=== PATIENT | female | born 1985 | race African-American/Black ===

== ENCOUNTER 2016-07-05 10:19 | Emergency (ER) | payer MEDICAID ==
[~2016-07-05] VITALS: Ht 167.6 cm; Wt 105.0 kg
[~2016-07-05 10:19] MED LIST: FLON0.053; LEVO75TA3 PO
[2016-07-05 10:22] VITALS: BP 138/83; PULSE 95; RESP 15; TEMP 98.1; O2SAT 98
--- NOTE | 2016-07-05 10:35 | PD ---
HPI Chief Complaint: Injury Time Seen by Provider: 10:32 Travel History International Travel<30 days: No Contact w/Intl Traveler<30days: No Traveled to known affect area: No History of Present Illness HPI Patient comes in complaining of right foot pain began yesterday after slipping in the rain. Patient having aching pain over the lateral aspect of her right foot without radiation. Pain is worse with walking. Patient is been elevating it, using ice, and taking ibuprofen for the pain. Denies any numbness or tingling. Patient is uncertain as to whether or not she is . [facility] Past Medical History Asthma: Yes Anxiety: Yes Thyroid Disease: Yes (HYPO) ?: Unknown LMP: 05/2016 : 3 Para: 1 Social History Alcohol Use: No Tobacco Use: No Substance Use: No Allergies-Medications (Allergen,Severity, Reaction): Coded Allergies: Ativan (Verified Adverse Reaction, Severe, HIVES AND ITCHING, 07/05/16) Reported Meds & Prescriptions Reported Meds & Active Scripts Active Levothyroxine 75 mcg (Levothyroxine Sodium) 75 Mcg Tab 75 Mcg PO DAILY Flonase (Fluticasone Propionate) 0.05 % Naspr 2 Spr NA DAILY 2 SPRAYS EACH NOSTRIL Review of Systems Except as stated in HPI: all other systems reviewed are Neg Physical Exam Narrative GENERAL: Well-developed, overly nourished, in no acute distress, and non-ill appearing. SKIN: Warm and dry. HEAD: Atraumatic. Normocephalic. EYES: Pupils equal and round. EOMI. No scleral icterus. No injection or drainage. ENT: No nasal bleeding or discharge. Mucous membranes pink and moist. NECK: Trachea midline. Supple. No nuclear rigidity. CARDIOVASCULAR: Dorsal pulses 2+ intact and equal bilaterally. Capillary refill less than 2 seconds. No pedal edema. RESPIRATORY: No accessory muscle use. No respiratory distress. MUSCULOSKELETAL: No obvious deformities. No clubbing. No cyanosis. No edema. Full range of motion. Ankle: Neagative anterior draw and Peck test. Negative Mary's sign. No laxity noted with passive inversion and eversion of BL ankles. Negative squeeze test. Pulses equal BL distal to injury. Capillary refill less than 2 seconds distal to injury and equal BL. Sensation equal BL 1st web space. FROM of toes distal to injury and equal BL. NV intact distal to injury and equal BL. Dorsal pulses equal BL. Patient reports tenderness to palpation over the lateral aspect of right foot proximally. NEUROLOGICAL: Awake and alert. No obvious cranial nerve deficits. Motor grossly within normal limits. Normal speech. PSYCHIATRIC: Appropriate mood and affect; insight and judgment normal. Data Data Last Documented VS Vital Signs Date Time Temp Pulse Resp B/P Pulse Ox O2 Delivery O2 Flow Rate FiO2 07/05/16 10:22 98.1 95 15 138/83 98 Orders Foot, Complete ([id number]) (07/05/16 ) Ed Urine Pregnancytest Poc (07/05/16 12:11) Splint Or Brace Apply/Monitor (07/05/16 12:17) Shoe Cast (07/05/16 ) MDM Medical Decision Making Medical Screen Exam Complete: Yes Emergency Medical Condition: Yes Differential Diagnosis Fracture, sprain, contusion, other Narrative Course There is no clinical evidence for fracture. There is no clinical evidence to suspect bony injury by exam. Radiographic examination revealed no fracture seen at this time. No obvious ligamental injury or internal derangement is noted at this time. The distal extremity appears neurovascularly intact, without evidence of neurovascular injury nor compartment syndrome. Tendon exam also was intact. The effected limb was splinted. The patient was discharged with sprain and splint care instructions and given warnings for vascular compromise. The patient is to follow up with primary care or podiatry. The patient agrees with plan. Patient in no obvious distress upon re-evaluation. All pertinent Radiology result(s) discussed with patient. Any questions/concerns in reference to patient diagnosis/condition discussed and clarified prior to patient's discharge. Reinforced sheer importance of close follow up with patient's primary physician or primary care clinic. Instructed patient to return to ED immediately, if symptoms return/worsen. Pt showed understanding of above instructions. Further instructions and recommendations were detailed in discharge paperwork. Pt ambulated without difficulty out of ED at discharge. Diagnosis Primary Impression: Foot sprain Qualified Code: S93.601A - Foot sprain, right, initial encounter Additional Impression: Qualified Code: Z3A.49 - More than 42 weeks gestation of Patient Instructions: First Trimester (ED), Foot Sprain (ED), General Instructions, Splint Care (ED) Additional Instructions: Follow-up with your primary care physician, photo tech, and or OB next week for reevaluation. Take [id number] Tylenol as needed for pain as this is the only thing that is safe [id number] to take in . Follow instructions on the packaging. Start taking [id number] vitamins. Follow instructions on the packaging. Return to the emergency department if symptoms get worse. Disposition: 01 DISCHARGE HOME Condition: Stable Danielito Mendiola Jul 05, 2016 10:34
--- NOTE | 2016-07-05 12:11 | RADRPT ---
EXAM DATE/TIME: 07/05/2016 11:53 [place] COMPARISON: No previous studies available for comparison. INDICATIONS : Right foot pain due to fall. MEDICAL HISTORY : None. SURGICAL HISTORY : None. ENCOUNTER: Initial ACUITY: 1 day PAIN SCORE: 4/10 LOCATION: Right Foot. FINDINGS: Three view examination of the right foot demonstrates no soft tissue swelling, dislocation, or fractu re. The tarsal bones appear intact. The interphalangeal and metatarsophalangeal joints are intact. The calcaneus is intact. Bony mineralization is normal. CONCLUSION: Unremarkable examination of the right foot. Juni Elliott MD on July 05, 2016 at 12:07 Board Certified Radiologist. This report was verified electronically.
[2016-07-05] MEDS ORDERED: LEVO75TA3 PO (14:49)
== END 2016-07-05 14:05 | disposition home or self-care (01) ==
LOC: NEPB 10:19
DX: S93.601A Unspecified sprain of right foot, initial encounter (principal); E07.9 Disorder of thyroid, unspecified; Z87.09 Personal history of other diseases of the respiratory system; Z86.59 Personal history of other mental and behavioral disorders; Z3A.49 Greater than 42 weeks gestation of pregnancy; W01.0XXA Fall on same level from slipping, tripping and stumbling without subsequent striking against object, initial encounter
CPT/HCPCS: 73630; 84703; 99283; L3260

== ENCOUNTER 2017-03-25 08:02 | Emergency (ER) | payer MEDICAID ==
[~2017-03-25] VITALS: Ht 167.6 cm; Wt 120.0 kg
[~2017-03-25 08:02] MED LIST changes: -FLON0.053
[2017-03-25 08:05] VITALS: BP 142/88; PULSE 89; RESP 16; TEMP 98.6; O2SAT 98
--- NOTE | 2017-03-25 08:41 | PD ---
HPI Chief Complaint: Cold / Flu Symptoms Time Seen by Provider: 08:22 Travel History International Travel<30 days: No Contact w/Intl Traveler<30days: No Traveled to known affect area: No History of Present Illness HPI 32-year-old female as to the emergency department with body aches, dry cough, and sneezing since Saturday. States that these bodies aches started Saturday and worsened throughout the day and weekend. States she also has some shortness of breath Saturday and Saturday however this has resolved. Denies fevers but admits to sweats. States her children have had the "common cold" within the last 2 weeks and believes that she became sick from them. She has had a couple of episodes of nausea without vomiting that resolved on room. Patient denies rhinorrhea, fever, chills, chest pain, shortness of breath, vomiting, or diarrhea. Patient denies dysuria or other urinary problems. 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 PFSH Past Medical History Asthma: Yes Anxiety: Yes Thyroid Disease: Yes (HYPO) ?: Not LMP: 03/12/17 : 3 Para: 1 Past Surgical History Surgical History: No Previous Surgery Social History Alcohol Use: No Tobacco Use: No Substance Use: No Allergies-Medications (Allergen,Severity, Reaction): Coded Allergies: lorazepam (Verified Adverse Reaction, Severe, HIVES AND ITCHING, 03/25/17) Reported Meds & Prescriptions Reported Meds & Active Scripts Active Tamiflu (Oseltamivir Phosphate) 75 Mg Cap 75 Mg PO BID 5 Days Reported Levothyroxine (Levothyroxine Sodium) 75 Mcg Tab 75 Mcg PO DAILY Review of Systems Except as stated in HPI: all other systems reviewed are Neg Physical Exam Narrative GENERAL: Well developed well nourished in mild distress SKIN: Focused skin assessment warm/dry. Patient demonstrates mild tenderness to palpation of the skin rashes or lesions. HEAD: Atraumatic. Normocephalic. EYES: Pupils equal and round. No scleral icterus. No injection or drainage. ENT: No nasal bleeding or discharge. Mucous membranes pink and moist. THROAT: Mild pharyngeal injection with tonsillar hypertrophy, no exudate NECK: Trachea midline. No JVD. CARDIOVASCULAR: Regular rate and rhythm. No murmur appreciated. RESPIRATORY: No accessory muscle use. Clear to auscultation. Breath sounds equal bilaterally. MUSCULOSKELETAL: No obvious deformities. No clubbing. No cyanosis. No edema. Right CVA tenderness versus bodyaches NEUROLOGICAL: Awake and alert. No obvious cranial nerve deficits. Motor grossly within normal limits. Normal speech. PSYCHIATRIC: Appropriate mood and affect; insight and judgment normal. Data Data Last Documented VS Vital Signs Date Time Temp Pulse Resp B/P (MAP) Pulse Ox O2 Delivery O2 Flow Rate FiO2 03/25/17 09:50 03/25/17 08:05 98.6 89 16 98 Orders Orders Pediatric Rapid Resp Ag Panel (03/25/17 08:35) Ketorolac Inj (Toradol Inj) (03/25/17 08:45) Ed Discharge Order (03/25/17 09:36) MDM Medical Decision Making Medical Screen Exam Complete: Yes Emergency Medical Condition: Yes Differential Diagnosis Viral syndrome versus influenza versus RSV versus common cold Narrative Course 32-year-old female as to the emergency department with body aches, dry cough, and sneezing since Saturday. States that these bodies aches started Saturday and worsened throughout the day and weekend. States she also has some shortness of breath Saturday and Saturday however this has resolved. Denies fevers but admits to sweats. States her children have had the "common cold" within the last 2 weeks and believes that she became sick from them. She has had a couple of episodes of nausea without vomiting that resolved on room. Patient denies rhinorrhea, fever, chills, chest pain, shortness of breath, vomiting, or diarrhea. Patient denies dysuria or other urinary problems. 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 Vital signs stable Physical exam consistent with subjective body aches Performed a respiratory panel- positive for influenza a Toradol for body aches I discussed the risks versus benefits of Tamiflu and the cost of this medication. I stated to patient that this may reduce her symptoms by couple of days however, the flu virus for resolve on its own. Advised patient to follow up with her primary care physician within 2 days. Ensure a nutritious diet and proper hydration. Motrin and Tylenol for symptom reduction Diagnosis Primary Impression: Influenza A Referrals: Primary Care Physician Additional Instructions: Follow-up with your primary care physician within 2 days Take Tylenol or Motrin per package instructions for symptom relief Tenure to hydrate and have a nutritious diet Scripts Oseltamivir (Tamiflu) 75 Mg Cap 75 MG PO BID for Mgmt Viral Infection for 5 Days, #10 CAP 0 Refills Prov: Kurtis Santos MD 03/25/17 Disposition: 01 DISCHARGE HOME Condition: Stable Brenda Patel Mar 25, 2017 08:41
[2017-03-25] MEDS ORDERED: KETOROLAC TROMETHAMINE 60 MG/2 ML (IM) VIAL IM ONE (08:45)
[2017-03-25] MEDS ORDERED: OSEL75 PO (09:36)
== END 2017-03-25 09:50 | disposition home or self-care (01) ==
LOC: NEPD 08:02
DX: J09.X2 Influenza due to identified novel influenza A virus with other respiratory manifestations (principal); J45.909 Unspecified asthma, uncomplicated; R05 Cough; R52 Pain, unspecified
CPT/HCPCS: 87804; 87807; 96372; 99284; J1885

== ENCOUNTER 2018-03-02 21:35 | Observation (INO) ==
--- NOTE | 2018-03-02 22:17 | ED ---
HPI General Chief complaint: Chest Pain Stated complaint: headache/leg numbness Time Seen by Provider: 03/02/18 21:50 History of Present Illness HPI narrative: 33-year-old female with a history of hypothyroidism presents to the ED for evaluation of chest pain, headache, and numbness and tingling in the left hand and left leg. Patient states that symptoms began at around 3 PM with headache and left hand and left leg tingling and lightheadedness. This began after she ate food, states it was very salty and she thought maybe her blood pressure was elevated but she didn't check it. States that this lasted for 4 hours. States that the headache is sharp shooting pains. States that the symptoms resolved for about 2 hours and then returned about 45 minutes ago after she ate dinner. States that she now also has midsternal chest pressure that is constant, an 8 on a scale of 1-10. Denies any aggravating factors. She did take a Tylenol 3 at home prior to arrival and states that this has helped her chest pain and headache some. She denies shortness of breath, difficulty breathing, nausea, vomiting, abdominal pain. She denies . Denies any history of heart disease. She does admit to drinking 2-3 glasses of wine every evening, has not had anything to drink today so far. Denies any drug use. No other complaints. Related Data Previous Rx's Medication Instructions Recorded levothyroxine 75 mcg PO DAILY #30 tab 01/23/18 Allergies Allergy/AdvReac Type Severity Reaction Status Date / Time lorazepam AdvReac Severe HIVES AND Verified 03/02/18 21:48 ITCHING Review of Systems ROS: all other systems reviewed are negative PMFSH Social History Social History Substance History: No History of Abuse Second Hand Smoke Exposure: Yes Smoking Status: Current some day smoker Tobacco Type: Cigarettes How Often Do You Have a Drink Containing Alcohol: 4 or more times a week Recent Travel in [facility] within the Last 8 Weeks: No Recent Out of Country Travel within the Last 8 Weeks: No Immunization History Tetanus Immunization: >5 Years Exam Narrative Exam Narrative: GENERAL: Well-nourished and well-developed pleasant patient in no acute distress who is nontoxic appearing. SKIN: Warm and dry without any obvious rashes or lesions. HEAD: Normocephalic and atraumatic. EYES: No injection, drainage, or hyphema noted. PERRLA. EOMI. ENT: No nasal drainage noted. Oropharynx is clear. NECK: Supple and the trachea is midline. CARDIOVASCULAR: Regular rate and rhythm. RESPIRATORY: Breath sounds are equal bilaterally with no accessory muscle use, wheezing, rhonchi, or crackles. GASTROINTESTINAL: Abdomen is soft, non-tender, and nondistended. MUSCULOSKELETAL: No obvious deformities, swelling, cyanosis, or ecchymosis is present throughout the upper and lower extremities. Patient has full range of motion without any signs of neurovascular compromise. Distal pulses are 2+ throughout. Strength 5/5 upper and lower extremities equal bilaterally. NEUROLOGICAL: Awake, alert, and oriented. Normal speech and gait. Finger to nose test is normal. Heel to beckham test is normal. Cranial nerves are grossly intact. Course Consultations Consultation #1: The patient's case including history, pertinent physical examination findings, and laboratory studies were discussed with Dr. Wilks. She recommended that instead of being admitted to the hospitalist service, the patient be admitted to the chest pain center for rule out serial cardiac enzyme protocol. Initial Documented Vital Signs Temperature 99.1 F 03/02/18 21:46 Pulse Rate 100 H 03/02/18 21:46 Respiratory Rate 18 03/02/18 21:46 Blood Pressure 150/93 H 03/02/18 21:46 Pulse Oximetry 96 03/02/18 21:46 Last Documented Vital Signs Temperature 99.1 F 03/02/18 21:46 Pulse Rate 82 03/02/18 23:30 Respiratory Rate 16 03/02/18 23:30 Blood Pressure 129/72 03/02/18 23:30 Pulse Oximetry 98 03/02/18 23:30 Sign Out Sign Out Data: Patient Sign Out occurred on 03/03/18 at 00:21. Patient's care was discussed, and care was transferred from Mary Pérez MD to Mary Pérez MD. Sign Out Comment: please see her complete history and physical. Patient's case was checked out to me at the conclusion of her shift.The patient's case was checked out to me by Makayla. She anticipated that the patient would require admission for TIA workup. Last updated by Mary Pérez MD at 03/03/18 00:21 Post-Handoff Eval: The patient's case is signed out to me by Makayla. Please see her initial history and physical. The patient presented with reports of having left hand and left leg tingling sensations that have been coming and going since earlier today. With the last episode of left hand and left leg tingling the patient also began to have chest pain. The patient's initial neurologic examination was cardiac exam was also unremarkable with a regular rate and rhythm without murmurs, gallops, or rubs. During the course of the patient's emergency department visit, the patient's history, examination, and differential diagnosis were reviewed with the patient. The patient was placed on a potline monitor with oximetry and frequent blood pressure monitoring. The patient had IV access obtained and blood work sent for analysis. The patient was initially provided aspirin 324 mg p.o. x1. The patient's CBC is within normal limits, PTT within normal limits, d-dimer is elevated at 0.79 therefore CTA to rule out PE was ordered. Chemistry was remarkable for a calcium of 8.3, alk phos 136, troponin I less than 0.02, lipase 67, chest x-ray showed no acute abnormality, CT scan of the brain showed no acute abnormality, CTA to rule out PE was negative for pulmonary embolism. Due to a concern of the patient's symptoms being related to TIA vs cardiac disease, the patient will be admitted to the hospitalist service. I spoke to the hospitalist gynaecological oncologist, Dr. Wilks, she recommended after further discusssion of the patient's history, examination findings, and laboratory studies recommended that the patient be admitted to the chest pain center. Medical Decision Making MARIE Attestation MARIE supervised visit: Yes Attestation: I, Dr. Pérez, have reviewed the advance practice practitioner's documentation and am in agreement, met with the patient face to face, made the diagnosis, and the medical decision making was done by me. The patient was initially evaluated by Makayla, the MARIE. Please see their complete history and physical. *My assessment and Findings: The patient presented with reports of having left hand and left leg tingling sensations that have been coming and going since earlier today. With the last episode of left hand and left leg tingling the patient also began to have chest pain. The patient's initial neurologic examination was cardiac exam was also unremarkable with a regular rate and rhythm without murmurs, gallops, or rubs. During the course of the patient's emergency department visit, the patient's history, examination, and differential diagnosis were reviewed with the patient. The patient was placed on a potline monitor with oximetry and frequent blood pressure monitoring. The patient had IV access obtained and blood work sent for analysis. The patient was initially provided aspirin 324 mg p.o. x1. The patient's CBC is within normal limits, PTT within normal limits, d-dimer is elevated at 0.79 therefore CTA to rule out PE was ordered. Chemistry was remarkable for a calcium of 8.3, alk phos 136, troponin I less than 0.02, lipase 67, chest x-ray showed no acute abnormality, CT scan of the brain showed no acute abnormality, CTA to rule out PE was negative for pulmonary embolism. Due to a concern of the patient's symptoms are related to TIA, the patient will be admitted to the hospitalist service. I spoke to Dr. Wilks regarding this patient's case and history. As the patient has no risk factors for TIA, she recommended that the patient instead be admitted to the chest pain center for rule out serial cardiac enzyme protocolAnd followed by consideration of stress testing by the sde. The patient's results were discussed with the patient, including the plan of care. I explained that further testing and/ or monitoring is indicated based on the patient's history, examination, and/ or laboratory findings. Therefore, I recommended admission for additional evaluation. The patient expressed understanding and was agreeable with this plan. The patient was admitted to the hospital in stable condition and sent to a bed under the care of the [facility] Narrative Medical decision making narrative: 33-year-old female presents to the ED for evaluation of chest pain, headache and left hand and left leg paresthesias. Patient is afebrile, vital signs are stable. IV access is obtained, labs have been drawn and sent. Patient is placed on cardiac telemetry and pulse oximetry monitoring. EKG shows normal sinus rhythm with no acute ST elevations or depressions. CBC is unremarkable. Chest x-ray is negative for any acute abnormalities, there is an elevated right hemidiaphragm. CMP is unremarkable. Lipase is normal. Troponin is less than 0.02. Patient signed out to Dr. Pérez pending head CT. She should be kept under observation for chest pain and TIA r/o. Medical Screen Exam Complete: Yes Emergency Medical Condition: Yes Differential Diagnosis Differential Diagnosis: Electrolyte abnormality versus dehydration versus TIA versus ACS versus gastritis Lab Data Result diagrams: 03/02/18 22:00 03/02/18 22:00 POC Results POC Urine Results Negative Lab Results 03/02/18 03/02/18 03/02/18 Range/Units 22:00 22:00 22:00 WBC 9.6 (4.0-11.0) th/mm3 RBC 4.32 (4.00-5.30) mil/mm3 Hgb 12.2 (11.6-15.3) gm/dL Hct 35.8 (35.0-46.0) % MCV 82.8 (80.0-100.0) fL MCH 28.1 (27.0-34.0) pg MCHC 34.0 (32.0-36.0) % RDW 15.0 (11.6-17.2) % Plt Count 225 (150-450) th/mm3 MPV 8.0 (7.0-11.0) fL Neut % (Auto) 64.3 (16.0-70.0) % Lymph % (Auto) 27.0 (9.0-44.0) % Gillespie % (Auto) 6.6 (0.0-8.0) % Eos % (Auto) 1.6 (0.0-4.0) % Baso % (Auto) 0.5 (0.0-2.0) % Neut # (Auto) 6.1 (1.8-7.7) th/mm3 Lymph # (Auto) 2.6 (1.0-4.8) th/mm3 Gillespie # (Auto) 0.6 (0.0-0.9) th/mm3 Eos # (Auto) 0.2 (0.0-0.4) th/mm3 Baso # (Auto) 0.1 (0.0-0.2) th/mm3 WBC Differential . Differential Comment Auto diff final PT 10.3 (9.8-11.6) sec INR 1.0 Ratio APTT 26.1 (24.3-30.1) sec D-Dimer Quant (PE/DVT) 0.79 H (0.00-0.50) mg/L FEU Sodium 138 (136-145) meq/L Potassium 3.5 (3.5-5.1) meq/L Chloride 106 (98-107) meq/L Carbon Dioxide 25.7 (21.0-32.0) meq/L Anion Gap 6 (5-15) meq/L BUN 10 (7-18) mg/dL Creatinine 0.83 (0.50-1.00) mg/dL Estimated GFR Greater than 89 (>89) mL/min POC Glucose (68-110) mg/dl Random Glucose 93 (74-106) mg/dL Calcium 8.3 L (8.5-10.1) mg/dL Total Bilirubin 0.4 (0.2-1.0) mg/dL AST 21 (15-37) U/L ALT 27 (10-53) U/L Alkaline Phosphatase 136 H (45-117) U/L Troponin I Less than 0.02 L (0.02-0.05) ng/mL Total Protein 7.6 (6.4-8.2) g/dL Albumin 3.5 (3.4-5.0) g/dL Lipase 67 L (73-393) U/L 03/02/18 Range/Units 22:02 WBC (4.0-11.0) th/mm3 RBC (4.00-5.30) mil/mm3 Hgb (11.6-15.3) gm/dL Hct (35.0-46.0) % MCV (80.0-100.0) fL MCH (27.0-34.0) pg MCHC (32.0-36.0) % RDW (11.6-17.2) % Plt Count (150-450) th/mm3 MPV (7.0-11.0) fL Neut % (Auto) (16.0-70.0) % Lymph % (Auto) (9.0-44.0) % Gillespie % (Auto) (0.0-8.0) % Eos % (Auto) (0.0-4.0) % Baso % (Auto) (0.0-2.0) % Neut # (Auto) (1.8-7.7) th/mm3 Lymph # (Auto) (1.0-4.8) th/mm3 Gillespie # (Auto) (0.0-0.9) th/mm3 Eos # (Auto) (0.0-0.4) th/mm3 Baso # (Auto) (0.0-0.2) th/mm3 WBC Differential Differential Comment PT (9.8-11.6) sec INR Ratio APTT (24.3-30.1) sec D-Dimer Quant (PE/DVT) (0.00-0.50) mg/L FEU Sodium (136-145) meq/L Potassium (3.5-5.1) meq/L Chloride (98-107) meq/L Carbon Dioxide (21.0-32.0) meq/L Anion Gap (5-15) meq/L BUN (7-18) mg/dL Creatinine (0.50-1.00) mg/dL Estimated GFR (>89) mL/min POC Glucose 101 (68-110) mg/dl Random Glucose (74-106) mg/dL Calcium (8.5-10.1) mg/dL Total Bilirubin (0.2-1.0) mg/dL AST (15-37) U/L ALT (10-53) U/L Alkaline Phosphatase (45-117) U/L Troponin I (0.02-0.05) ng/mL Total Protein (6.4-8.2) g/dL Albumin (3.4-5.0) g/dL Lipase (73-393) U/L Imaging Data Radiologist's impression: Chest X-Ray 03/02/18 22:13 CONCLUSION: No acute findings. Elevated right hemidiaphragm. Head CT 03/02/18 22:13 CONCLUSION: Negative noncontrast head CT. . Chest CTA 03/02/18 22:55 CONCLUSION: No pulmonary embolus. Discharge Plan Discharge Disposition Patient Disposition: 30 Still Patient Discharge Details Diagnosis: Chest pain, rule out acute myocardial infarction, Tingling of left upper extremity, Numbness and tingling of left leg Physicians Team ED Provider: Mary Pérez Primary Care Provider: Shashank Beatty Rxs /Orders / Referrals /Forms Prescriptions: No Action levothyroxine 75 mcg tablet 75 mcg PO DAILY Qty: 30 RF: 0 Discharge Instructions Patient Printed Instructions: Chest Pain (ED) Discharge Interventions Interventions: Vital Signs Last Done: 03/02/18 22:00 Status ED Status: With Doctor
[2018-03-02 22:27] LABS: Baso # (Auto) 0.1 th/mm3 (0.0-0.2); Baso % (Auto) 0.5 % (0.0-2.0); Eos # (Auto) 0.2 th/mm3 (0.0-0.4); Eos % (Auto) 1.6 % (0.0-4.0); Hematocrit 35.8 % (35.0-46.0); Hemoglobin 12.2 gm/dL (11.6-15.3); Lymph # (Auto) 2.6 th/mm3 (1.0-4.8); Mean Corpuscular Hemoglobin 28.1 pg (27.0-34.0); Mean Corpuscular Volume 82.8 fL (80.0-100.0); Mono # (Auto) 0.6 th/mm3 (0.0-0.9); Mono % (Auto) 6.6 % (0.0-8.0); Neut # (Auto) 6.1 th/mm3 (1.8-7.7); Neut % (Auto) 64.3 % (16.0-70.0); Platelet Count 225 th/mm3 (150-450); Red Blood Count 4.32 mil/mm3 (4.00-5.30); White Blood Count 9.6 th/mm3 (4.0-11.0)
--- NOTE | 2018-03-02 22:27 | XR ---
EXAM DATE: 03/02/2018 10:13 PM EDT AGE/SEX: 33 years / Female INDICATIONS: Chest pain, pressure CLINICAL DATA: This is the patient's initial encounter. Patient reports that signs and symptoms have been present for 1 day and indicates a pain score of 8/10. MEDICAL/SURGICAL HISTORY: None. None. COMPARISON: [facility] [place], CHEST 2V PA&LAT, 02/05/2018. . FINDINGS: A single AP view of the chest demonstrates the lungs to be symmetrically aerated without evidence of mass, infiltrate or effusion. The cardiomediastinal contours are unremarkable. Osseous structures a re intact. CONCLUSION: No acute findings. Elevated right hemidiaphragm. Electronically signed by: Shyam Ocampo MD 03/02/2018 10:25 PM EDT
[2018-03-02 22:40] LABS: Activated Partial Thrombo Time 26.1 sec (24.3-30.1); Prothrombin Time 10.3 sec (9.8-11.6)
[2018-03-02 22:43] LABS: Alanine Aminotransferase 27 U/L (10-53); Albumin 3.5 g/dL (3.4-5.0); Anion Gap 6 meq/L (5-15); Aspartate Aminotransferase 21 U/L (15-37); Blood Urea Nitrogen 10 mg/dL (7-18); Calcium 8.3 mg/dL (8.5-10.1); Carbon Dioxide 25.7 meq/L (21.0-32.0); Chloride 106 meq/L (98-107); Glomerular Filtration Rate Greater Than 89 mL/min (>89); Glucose,Random 93 mg/dL (74-106); Lipase 67 U/L (73-393); Potassium 3.5 meq/L (3.5-5.1); Sodium 138 meq/L (136-145)
[2018-03-02 22:47] LABS: Alkaline Phosphatase 136 U/L (45-117); Total Protein 7.6 g/dL (6.4-8.2)
[2018-03-02 22:51] LABS: D-Dimer 0.79 mg/L FEU (0.00-0.50)
--- NOTE | 2018-03-02 23:54 | CT ---
EXAM DATE: 03/02/2018 11:03 PM EDT AGE/SEX: 33 years / Female INDICATIONS: Headache and general malaise. CLINICAL DATA: This is the patient's initial encounter. Patient reports that signs and symptoms have been present for 1 day and indicates a pain score of 3/10. MEDICAL/SURGICAL HISTORY: Asthma. Hypothyroidism. None. RADIATION DOSE: 56.35 CTDI (mGy) COMPARISON: [facility] [place], CT HEAD W/O CONTRAST, 02/05/2018. . TECHNIQUE: CT of the head without contrast. Using automated exposure control and adjustment of the mA and/or kV according to patient size, radiation dose was kept as low as reasonably achievable to ob tain optimal diagnostic quality images. DICOM format image data is available electronically for revi ew and comparison. FINDINGS: Cerebrum: The ventricles are normal for age. No evidence of midline shift, mass lesion, hemorrhage or acute infarction. No extraaxial fluid collections are seen. Posterior Fossa: The cerebellum and brainstem are intact. The 4th ventricle is midline. The cerebe llopontine angle is unremarkable. Extracranial: The visualized portion of the orbits is intact. Skull: The calvaria is intact. No evidence of skull fracture. CONCLUSION: Negative noncontrast head CT. . Electronically signed by: Juni Crawford MD 03/02/2018 11:53 PM EDT
--- NOTE | 2018-03-02 23:56 | CT ---
EXAM DATE: 03/02/2018 11:03 PM EDT AGE/SEX: 33 years / Female INDICATIONS: Chest pain and elevated d-dimer; rule out pulmonary embolus. CLINICAL DATA: This is the patient's initial encounter. Patient reports that signs and symptoms have been present for 1 day and indicates a pain score of 3/10. MEDICAL/SURGICAL HISTORY: Asthma. Hypothyroidism. None. RADIATION DOSE: 10.89 CTDI (mGy) COMPARISON: No prior exams available for comparison. TECHNIQUE: Volumetric scanning was performed using a multi-row detector CT scanner during bolus infu myrna of 74 ml Omnipaque 350 (iohexol) nonionic water-soluble contrast as a single exam dose. The shaun a was post processed with a variety of visualization algorithms including full volume maximum intensi ty projection and sliding thin slab reformation. Using automated exposure control and adjustment of t he mA and/or kV according to patient size, radiation dose was kept as low as reasonably achievable to obtain optimal diagnostic quality images. DICOM format image data is available electronically for r eview and comparison. FINDINGS: Pulmonary Arteries: No filling defects are seen in the pulmonary arteries out to the subsegmental ve ssels. The left and right pulmonary arteries are normal in diameter. Lung: No infiltrates seen. Effusion: None. Mediastinum: No evidence of mediastinal or hilar adenopathy. Other: The axilla is unremarkable. CONCLUSION: No pulmonary embolus. Electronically signed by: Juni Crawford MD 03/02/2018 11:55 PM EDT
[2018-03-03] MEDS ORDERED: Acetaminophen 500 MG Tablet PO PRN (00:56)
[2018-03-03] MEDS ORDERED: Sod Chloride 0.9% Inj 1,000 ML IV.CONT SCH (01:00)
[2018-03-03 01:57] LABS: Creatine Kinase 136 U/L (26-192)
[2018-03-03 05:32] LABS: Creatine Kinase 101 U/L (26-192)
--- NOTE | 2018-03-03 08:00 | MH ---
cc: Natanael Perez MD DATE OF ADMISSION: 03/03/2018 HISTORY OF PRESENT ILLNESS: This is a 33-year-old woman who was admitted to the chest pain center for complaints of chest discomfort. She said that shortly after 9 o'clock yesterday morning, after eating breakfast, she began experiencing chest discomfort which she described as a pressure-type sensation in her chest. This was associated with some anxiety symptoms which she describes as feeling jittery, as well as some mild stomach upset and shortness of breath. No nausea or diaphoresis was noted. She did note some mildly loose stools, which were somewhat unusual for her. This persisted throughout the day and she has come to the emergency department. Her electrocardiogram was normal. The D-dimer was elevated 0.79. CTA of her chest revealed no evidence for pulmonary emboli. Her troponins have been normal x2. Risk factors for coronary disease are essentially absent. She denies any history of hypertension, diabetes, or hyperlipidemia. She has no family history. She does smoke an occasional cigar, but this is a rare event. ALLERGIES: ATIVAN. PAST MEDICAL HISTORY: Otherwise has been significant for hypothyroidism for which she takes thyroxine. SOCIAL HISTORY: The patient works as a [employer]. She does not drink and as noted above rarely smokes. PHYSICAL EXAMINATION: GENERAL: She is awake and alert, in no acute distress. VITAL SIGNS: Blood pressure is 129/72, pulse is 70 and regular. HEENT: Unremarkable. NECK: There is no neck vein distention. Carotids are normal. LUNGS: Clear. CARDIOVASCULAR: Reveals a regular rate and rhythm. There is no significant murmur present. No gallop is noted. ABDOMEN: Soft. There is no tenderness or organomegaly, is somewhat obese, but no masses are palpable. EXTREMITIES: Reveal no edema. ASSESSMENT: The patient has very atypical chest discomfort, which is still somewhat present now with a normal electrocardiogram and normal troponins. It is unlikely that this is coronary in nature and may be related to mild gastritis. PLAN: Treadmill exercise test for further evaluation. MD SAUD Florence/edgardo , 07:25 AM , 07:32 AM
[2018-03-03 08:28] VITALS: BP 118/85; PULSE 77; RESP 16; TEMP 97.5; O2SAT 96
--- NOTE | 2018-03-03 14:04 | ECG ---
Date Performed: 03/02/2018 Time Performed: 21:56:19 PTAGE: 33 years EKG: Sinus rhythm NORMAL ECG PREVIOUS TRACING : 08/22/2011 10.16 Since previous tracing, no significant change noted DOCTOR: Natanael Perez Interpretating Date/Time 03/03/2018 14:01:38
--- NOTE | 2018-03-03 14:06 | ECG ---
Date Performed: 03/03/2018 Time Performed: 01:03:12 PTAGE: 33 years EKG: Sinus rhythm NORMAL ECG PREVIOUS TRACING : 03/02/2018 21.56 Since previous tracing, no significant change noted DOCTOR: Natanael Perez Interpretating Date/Time 03/03/2018 14:03:02
--- NOTE | 2018-03-03 14:07 | ECG ---
Date Performed: 03/03/2018 Time Performed: 05:13:36 PTAGE: 33 years EKG: Sinus rhythm NORMAL ECG PREVIOUS TRACING : 03/03/2018 01.03 Since previous tracing, no significant change noted DOCTOR: Natanael Perez Interpretating Date/Time 03/03/2018 14:04:42
--- NOTE | 2018-03-03 14:09 | TR ---
Date Performed: 03/03/2018 Time Performed: 09:30:18 DOCTOR: Natanael Perez DRUG LIST: CLINICAL HISTORY: CHEST PAIN R/O ACS REASON FOR TEST: REASON FOR ENDING: OBSERVATION: CONCLUSION: EPIFANIO PROTOCOL. NO CP. TEST STOPPED AFTER EXCEEDING GOAL HR SECONDARY TO SOB AND LEG FATIGUE.Maximum SG=667 % Max HR Achieved=87.0% Resting ND=533/80 Total Exercise Time=9:00 COMMENTS: Patient exercised using the Epifanio protocol. No electrocardiographic changes were seen to suggest ischemia. Hemodynamic response to exercise was normal. No significant arrhythmia was prese nt.
== END 2018-03-03 12:28 | disposition home or self-care (01) ==
LOC: NEPE 21:35 → NEDA 21:35 → NEPGCP 03-03 02:00
PROVIDERS: ADMIT Internal Medicine Interventional Cardiology; ATTEND Internal Medicine Interventional Cardiology
DX: E03.9 Hypothyroidism, unspecified; R51 Headache; Z79.890 Hormone replacement therapy; F17.210 Nicotine dependence, cigarettes, uncomplicated; R07.89 Other chest pain